=== PATIENT | male | born 1955 | race Caucasian/White ===

== ENCOUNTER → 2017-06-19 08:19 | Outpatient (CLI) | payer BC ==
--- NOTE | ~2017-06-19 | EC ---
PATIENT:JR GORE DATE OF SERVICE: 06/19/17 SEX: M MEDICAL RECORD: [id number] DATE OF : [birth year] LOCATION:[facility] AGE OF PATIENT: 62 ADMISSION DATE: 06/19/17 REFERRING PHYSICIAN: INTERPRETING PHYSICIAN: NARENDRA DA SILVA MD ECHOCARDIOGRAM REPORT ECHO CHARGES 4 ECHO COMPLETE Date: 06/19 CLINICAL DIAGNOSIS: CHEST PAIN,PALPS,HTN/FATIGUE ECHOCARDIOGRAPHIC MEASUREMENTS (adult normal given) AC root (d.<3.7cm) 3.6 cm LV Septum d (<1.2 cm> 1.7 cm Valve Excursion 1.7 cm LV Septum (systole) 2.0 cm Left Atria (s.<4.0cm> 3.7 cm LVPW d(<1.2cm) 1.5 cm RV (d.<2.3cm) 4.4 cm LVPW (sytole) 2.1 cm LV diastole(<5.6CM) 4.8 cm MV E-F(>70mm/sec) cm LV systole 2.8 cm LVOT Diameter 1.9 cm MV exc.(>10mm) 1.5 cm Est.ejection fraction (50-75%) % DOPPLER: LVIT cm/sec A 119 cm/sec E 93.0 cm/sec LA cm/sec RVSP 17 mmHg LVOT 105 cm/sec AOP1/2T m/s Asc. Ao 121 cm/sec RVOT 99 cm/sec RA cm/sec PA 119 cm/sec AV Gradient Peak 5.90 mmHg AV Mean 2.97 mmHg AV Area 2.5 cm MV Gradient Peak 5.60 mmHg MV Mean 2.27 mmHg MV Area cm COMMENTS: Baccarat Dealer: Mana WILKS Acute Care Nurse: Maya Jacinto TAPE# PACS Pericardial Effusion N DATE OF SERVICE: 06/19/2017 Echocardiogram FINDINGS: 1. Left ventricular chamber size is within normal limits. Left ventricular systolic function is normal. Overall ejection fraction estimated at 60%. 2. Left atrium is within normal limits at 3.7 cm. Right atrium and right ventricular chamber sizes are mildly dilated. 3. Valvular structures have normal structure and motion. ECHOCARDIOGRAM REPORT [id number] JR GORE 4. Doppler interrogation reveals only [id number] mitral regurgitation, no other valvular insufficiency or stenosis. 5. No evidence of pericardial effusion or left ventricular thrombus. TRANSINT:[id number] Voice Confirmation ID: [id number] DOCUMENT ID: [id number] NARENDRA DA SILVA MD at 1730 CC: [id number] DICTATION DATE: 06/20/17 1036 MACHINE FANCY STITCHER: 06/20/17 1248 DEP CLI 06/19/17 [place] [id number] [place] [id number]
== END | disposition home or self-care (01) ==
LOC: D.ECHO 08:19
DX: R07.9 Chest pain, unspecified (principal); R00.2 Palpitations; I10 Essential (primary) hypertension; G47.33 Obstructive sleep apnea (adult) (pediatric); R53.83 Other fatigue; R94.31 Abnormal electrocardiogram [ECG] [EKG]; R40.0 Somnolence

== ENCOUNTER → 2017-07-30 18:23 | Outpatient (CLI) | payer BC ==
[2017-07-30 19:41] LABS: CHOL - HDL RATIO 3.8 ratio (2.3-4.9); LDL-HDL RATIO 1.4 ratio (1.5-3.5)
== END | disposition home or self-care (01) ==
LOC: D.LABREF 18:23
PROVIDERS: Internal Medicine Cardiovascular Disease
DX: E78.5 Hyperlipidemia, unspecified (principal)